=== PATIENT | male | born 1985 | race Hispanic/Latino ===

== ENCOUNTER 2020-03-28 20:55 | Inpatient (IN) | payer OTHER ==
[~2020-03-28] VITALS: Ht 167.6 cm; Wt 79.4 kg
[2020-03-28] MEDS ORDERED: ONDANSETRON HCL INJ 2MG/ML 2ML 2 MG/ML VIAL IV STA (22:32)
[2020-03-28] MEDS ORDERED: SODIUM CHLORIDE 0.9% 1000ML 1,000 ML IV ONE ×2 (22:45)
[2020-03-28 22:56] LABS: BASOPHILS % 0.1 % (0.0-1.0); HEMATOCRIT 49.7 % (38.2-49.6); HEMOGLOBIN 17.3 g/dL (14.0-18.0); MEAN CORPUSCULAR HEMOGLOBIN 27.5 pg (28-32); MEAN CORPUSCULAR HGB CONC 34.8 g/dL (31-35); MEAN CORPUSCULAR VOLUME 79.1 fL (81-99); MONOCYTES # (AUTO) 2.7 (0.2-0.8); MONOCYTES % 9.3 % (4.4-11.3); NEUTROPHILS % 82.7 % (38.7-80.0); PLATELET COUNT 288 x10e3/uL (140-360); RED BLOOD COUNT 6.28 x10e6/uL (4.3-5.7); RED CELL DISTRIBUTION WIDTH 12.2 % (11.7-14.4)
[2020-03-28 23:08] LABS: MAGNESIUM 2.5 MG/DL (1.3-2.1)
[2020-03-28 23:10] LABS: ALBUMIN 6.4 g/dL (3.5-5.0); ALBUMIN/GLOBULIN RATIO 1.4 (0.8-2.0); ANION GAP 30.2 mmol/L (8-16); CALCIUM 12.3 mg/dL (8.4-10.2); CREATININE, SERUM 4.95 mg/dL (0.72-1.25); POTASSIUM 4.2 mmol/L (3.5-5.1)
[2020-03-28 23:17] LABS: CREATINE KINASE MB 7.5 ng/mL (0-5.0)
[2020-03-29] VITALS (9 sets, daily range): BP systolic 117–128; BP diastolic 58–86
[2020-03-29 00:13] LABS: CLARITY,URINE CLOUDY (CLEAR); COLOR,URINE AMBER (YELLOW); KETONES,URINE NEGATIVE (NEGATIVE); LEUKOCYTE ESTERASE ,URINE NEGATIVE (NEGATIVE); NITRITE,URINE NEGATIVE (NEGATIVE); PROTEIN,URINE DIPSTICK 2+ (NEGATIVE)
[2020-03-29 00:14] LABS: AMPHETAMINES SCREEN,URINE NEGATIVE (NEGATIVE); BENZODIAZEPINES SCREEN,URINE NEGATIVE (NEGATIVE); BILIRUBIN,URINE SMALL (NEGATIVE); PHENCYCLIDINE SCREEN,URINE NEGATIVE (NEGATIVE)
[2020-03-29 00:15] LABS: BACTERIA,URINE MANY /HPF; EPITHELIAL CELLS,URINE MANY /LPF
--- NOTE | 2020-03-29 00:36 | Emergency Department Note ---
History of Present Illnes History of Present Illness Chief Complaint: General Medicine Complaints History of Present Illness This is a 35 year old male PRESENTS TO ED WITH CRAMPS TO BLE, ABDOMEN AND NAUSEA; PT REPORTS WORKED OUTSIDE "ALL DAY AND THEN I HAD ABOUT 3 BEERS. STATES HE DID NOT REALLY DRINK MUCH WATER . Historian: Patient Arrival Mode: Car Onset (how long ago): hour(s) (3) Location: LEGS LOWER ABD Quality: CRAMPING Radiation: Reports non-radiation Severity: severe Onset quality: gradual Duration (how long): hour(s) (3) Timing of current episode: constant Progression: worsening Chronicity: new Context: Reports other (WORKED OUTSIDE IN HEAT ALL DAY); Denies recent illness, Denies recent surgery Relieving factors: none Exacerbating factors: none Associated symptoms: Reports denies other symptoms Past Medical/Family History Physician Review I have reviewed the patient's past medical and family history. Any updates have been documented here. Past Medical History Recent Fever: No Clinical Suspicion of Infectio: No New/Unexplained Change in Ment: No Past Medical History: None Past Surgical History: None Social History Smoking Cessation: Never Smoker Alcohol Use: Social Any Illegal Drug Use: No Review of Systems Review of Systems Constitutional: Reports no symptoms EENTM: Reports no symptoms Cardiovascular: Reports no symptoms Respiratory: Reports no symptoms Gastrointestinal: Reports as per HPI Genitourinary: Reports no symptoms Musculoskeletal: Reports as per HPI Integumentary: Reports no symptoms Neurological: Reports no symptoms Psychological: Reports no symptoms Endocrine: Reports no symptoms Hematological/Lymphatic: Reports no symptoms Physical Exam Related Data Allergies: Coded Allergies: No Known Allergies (Unverified , 03/28/20) Triage Vital Signs Vital Signs Date Time Temp Pulse Resp B/P (MAP) Pulse Ox O2 Delivery O2 Flow Rate FiO2 03/28/20 21:28 99.6 97 21 133/96 99 Room Air Vital signs reviewed: Yes Physical Exam CONSTITUTIONAL Constitutional: Present well-developed, Present well-nourished, Present distressed (MILD) HENT HENT: Present normocephalic, Present atraumatic, Present oropharynx clear/moist, Present nose normal HENT L/R: Present left ext ear normal, Present right ext ear normal EYES Eyes: Reports PERRL, Reports conjunctivae normal NECK Neck: Present ROM normal PULMONARY Pulmonary: Present effort normal, Present breath sounds normal CARDIOVASCULAR Cardiovascular: Present regular rhythm, Present heart sounds normal, Present capillary refill normal, Present normal rate GASTROINTESTINAL Abdominal: Present soft, Present nontender, Present bowel sounds normal GENITOURINARY Genitourinary: Present exam deferred SKIN Skin: Present warm, Present dry MUSCULOSKELETAL Musculoskeletal: Present ROM normal NEUROLOGICAL Neurological: Present alert, Present oriented x 3, Present no gross motor or sensory deficits PSYCHOLOGICAL Psychological: Present mood/affect normal, Present judgement normal Results Laboratory Result Diagram: 03/28/20222903/28/202229 Laboratory Laboratory Tests Test 03/28/20 23:30 03/28/20 22:35 03/28/20 22:30 Lipase 73 U/L (8-78) Urine Color Yanni (YELLOW) Urine Clarity Cloudy (CLEAR) Urine pH 6 (5 - 7) Urine Specific [place] >=1.030 (1.010-1.025) Urine Protein 2+ (NEGATIVE) Urine Glucose (UA) Negative (NEGATIVE) Urine Ketones Negative (NEGATIVE) Urine Blood Moderate (NEGATIVE) Urine Nitrite Negative (NEGATIVE) Urine Bilirubin Small (NEGATIVE) Urine Urobilinogen 2.0 mg/dL (0.2 - 1) Urine Leukocyte Esterase Negative (NEGATIVE) Urine RBC 11-20 /HPF (0-5) Urine WBC 11-20 /HPF (0-5) Urine Epithelial Cells Many /LPF (NONE) Urine Bacteria Many /HPF (NONE) Urine Opiates Screen Negative (NEGATIVE) Urine Methadone Screen Negative (NEGATIVE) Urine Barbiturates Screen Negative (NEGATIVE) Urine Phencyclidine Screen Negative (NEGATIVE) Urine Amphetamines Screen Negative (NEGATIVE) Urine Methamphetamines Screen Negative (NEGATIVE) Urine Benzodiazepines Screen Negative (NEGATIVE) Urine Cocaine Screen Negative (NEGATIVE) Urine Cannabinoids Screen Negative (NEGATIVE) White Blood Count 29.02 x10e3/uL (4.8-10.8) Red Blood Count 6.28 x10e6/uL (4.3-5.7) Hemoglobin 17.3 g/dL (14.0-18.0) Hematocrit 49.7 % (38.2-49.6) Mean Corpuscular Volume 79.1 fL (81-99) Mean Corpuscular Hemoglobin 27.5 pg (28-32) Mean Corpuscular Hemoglobin Concent 34.8 g/dL (31-35) Red Cell Distribution Width 12.2 % (11.7-14.4) Platelet Count 288 x10e3/uL (140-360) Neutrophils (%) (Auto) 82.7 % (38.7-80.0) Lymphocytes (%) (Auto) 7.0 % (18.0-39.1) Monocytes (%) (Auto) 9.3 % (4.4-11.3) Eosinophils (%) (Auto) 0.0 % (0.0-6.0) Basophils (%) (Auto) 0.1 % (0.0-1.0) Neutrophils # (Auto) 24.0 (2.1-6.9) Lymphocytes # (Auto) 2.0 (1.0-3.2) Monocytes # (Auto) 2.7 (0.2-0.8) Eosinophils # (Auto) 0.0 (0.0-0.4) Basophils # (Auto) 0.0 (0.0-0.1) Absolute Immature Granulocyte (auto 0.26 x10e3/uL (0-0.1) Sodium Level 137 mmol/L (136-145) Potassium Level 4.2 mmol/L (3.5-5.1) Chloride Level 90 mmol/L (98-107) Carbon Dioxide Level 21 mmol/L (22-29) Anion Gap 30.2 mmol/L (8-16) Blood Urea Nitrogen 27 mg/dL (7-26) Creatinine 4.95 mg/dL (0.72-1.25) Estimat Glomerular Filtration Rate 14 ML/MIN (60-) BUN/Creatinine Ratio 5 (6-25) Glucose Level 112 mg/dL (74-118) Calcium Level 12.3 mg/dL (8.4-10.2) Magnesium Level 2.5 MG/DL (1.3-2.1) Total Bilirubin 0.6 mg/dL (0.2-1.2) Aspartate Amino Transf (AST/SGOT) 61 IU/L (5-34) Alanine Aminotransferase (ALT/SGPT) 114 IU/L (0-55) Alkaline Phosphatase 114 IU/L (40-150) Creatine Kinase 1437 IU/L (30-200) Creatine Kinase MB 7.50 ng/mL (0-5.0) Troponin I 0.095 ng/mL (0-0.300) Total Protein 11.1 g/dL (6.5-8.1) Albumin 6.4 g/dL (3.5-5.0) Globulin 4.7 g/dL (2.3-3.5) Albumin/Globulin Ratio 1.4 (0.8-2.0) Ethyl Alcohol Level < 10.0 mg/dL (0.0-10.0) Lab results reviewed: Yes Assessment & Plan Medical Decision Making MDM PT WITH CRAMPING TO LEGS AND LOWER ABD AFTER WORKING OUTSIDE IN HEAT ALL DAY CBC,CMP, CARDIAC ENZYMES, UA ORDERED TO EVAL FOR RHABDOMYOLYSIS, ACUTE RENAL FAILURE, DEHYDRATION, ELECTROLYTE ABNORMALITY 1 LITER NS IV ORDERED PT FOUND TO BE I RHABDO WITH ACUTE RENAL FAILURE, A UTI AND LEUKOCYTOSIS I SPOKE WITH DR [place] ADMIT TO INPATIENT ROCEPHIN 1 GRAM IV ORDERED Assessment & Plan Final Impression: (1) Rhabdomyolysis (2) Acute renal failure (3) UTI (urinary tract infection) (4) Leukocytosis Depart Disposition: ADMITTED Last Vital Signs Date Time Temp Pulse Resp B/P (MAP) Pulse Ox O2 Delivery O2 Flow Rate FiO2 03/28/20 21:28 99.6 97 21 133/96 99 Room Air Medications in the ED Sodium Chloride 1,000 ml @ 999 mls/hr Q1H1M ONCE IV Last administered on 03/28/20at 22:44; Admin Dose 999 MLS/HR; Start 03/28/20 at 22:45; Stop 03/28/20 at 23:45 Ondansetron HCl 4 mg NOW STAT IV Last administered on 03/28/20at 22:44; Admin Dose 4 MG; Start 03/28/20 at 22:32; Stop 03/28/20 at 22:33 Sodium Chloride 1,000 ml @ 999 mls/hr Q1H1M ONCE IV Last administered on 03/28/20at 22:44; Admin Dose 999 MLS/HR; Start 03/28/20 at 22:45; Stop 03/28/20 at 23:45 ZOË GAITAN MD Mar 29, 2020 00:36
--- NOTE | 2020-03-29 00:37 | NUR ---
RECEIVED PATIENT IN ROOM
[2020-03-29] MEDS ORDERED: CEFTRIAXONE SOD 1 GM/NS 50 ML 50 ML IV SCH (00:45)
[2020-03-29] MEDS ORDERED: ONDANSETRON HCL INJ 2MG/ML 2ML 2 MG/ML VIAL IV PRN (00:45)
[2020-03-29] MEDS: SODIUM CHLORIDE 0.9% 1000ML 1,000 ML IV SCH ×5 (01:09→23:07)
--- NOTE | 2020-03-29 03:53 | NUR ---
PT IS TRANSFERRED FROM ER PT IS AOX3 RESPIRATIONS ARE EVEN AND UNLABORED DENIES PAIN.ORIENTED THE PT TO THE ENVIRONMENT .ASSESSMENT DONE CALL LIGHT WITH IN REACH ,CONTINUE TO MONITOR
[2020-03-29 04:19] LABS: EOSINOPHILS % (MANUAL) 2 % (0-7); LYMPHOCYTES % (MANUAL) 7 % (19-48); METAMYELOCYTES % (MANUAL) 1 % (0-0); MONOCYTES % (MANUAL) 10 % (3.4-9.0); MYELOCYTES % (MANUAL) 1 % (0-0); NEUTROPHILS % (MANUAL) 79 % (40-74)
[2020-03-29 04:20] LABS: PLATELET ESTIMATE ADEQUATE; PLATELET MORPHOLOGY COMMENT NORMAL; RBC MORPHOLOGY COMMENT NORMAL
--- NOTE | 2020-03-29 06:26 | NUR ---
PT RESTING ,DENIES PAIN CALL LIGHT WITH IN REACH,CONTINUE TO MONITOR
--- NOTE | 2020-03-29 07:00 | NUR ---
RCD PT AT BED PT IS ALERT AND ORIENTED RESTING ON BED IV PATENT , BED LOW AND LOCKED CALL LIGHT IN REACH
--- NOTE | 2020-03-29 07:07 | NUR ---
BEDSIDE REPORT GIVEN TO THE ONCOMING NURSE
[2020-03-29 07:54] LABS: CREATINE KINASE MB 5.3 ng/mL (0-5.0)
[2020-03-29 10:46] LABS: BASOPHILS % 0.4 % (0.0-1.0); EOSINOPHILS # (AUTO) 0.1 (0.0-0.4); EOSINOPHILS % 0.5 % (0.0-6.0); HEMATOCRIT 37.3 % (38.2-49.6); LYMPHOCYTES # (AUTO) 1.5 (1.0-3.2); LYMPHOCYTES % 14.4 % (18.0-39.1); MEAN CORPUSCULAR HEMOGLOBIN 27.5 pg (28-32); MEAN CORPUSCULAR HGB CONC 33.8 g/dL (31-35); MEAN CORPUSCULAR VOLUME 81.4 fL (81-99); MONOCYTES # (AUTO) 1.3 (0.2-0.8); MONOCYTES % 12.4 % (4.4-11.3); NEUTROPHILS # (AUTO) 7.7 (2.1-6.9); PLATELET COUNT 165 x10e3/uL (140-360); RED BLOOD COUNT 4.58 x10e6/uL (4.3-5.7); RED CELL DISTRIBUTION WIDTH 12.4 % (11.7-14.4)
[2020-03-29 10:56] LABS: HEMOGLOBIN 12.6 g/dL (14.0-18.0)
[2020-03-29 11:01] LABS: CALCIUM 8.9 mg/dL (8.4-10.2); CREATININE, SERUM 1.45 mg/dL (0.72-1.25)
--- NOTE | 2020-03-29 18:40 | NUR ---
PT RESTING ON BED BED SIDE REPORT GIVEN TO ONCOMING NURSE
--- NOTE | 2020-03-29 20:12 | NUR ---
RECEIVED PT SITTING THE SIDE OF THE BED AOX3 .DENIES PAIN BLOOD DRAWN FOR [facility] .CALL LIGHT WITH IN REACH .CONTINUE TO MONITOR
[2020-03-29] MEDS ORDERED: ACETAMINOPHEN 325 MG TAB PO PRN (20:30)
--- NOTE | 2020-03-29 23:30 | History and Physical ---
PRIMARY CARE DOCTOR: Dr. Cuello. CHIEF COMPLAINT: Leg cramps. HISTORY OF PRESENT ILLNESS: This is a 35-year-old healthy, who has been working outdoor in the hot whether, presented with nausea, bilateral lower extremities cramps and abdominal cramps. Denies chest pain or shortness of breath. No fever or chills. No cough. In the emergency room, the patient felt better after 1 L of fluid. The patient only urinated twice this morning. PAST MEDICAL AND SURGICAL HISTORY: None. MEDICATIONS: None. ALLERGIES: NONE. SOCIAL HISTORY: Does not smoke. Occasional alcohol. FAMILY HISTORY: Positive for diabetes. REVIEW OF SYSTEMS: A 10-point review of system obtained and nothing else is significant other than what is stated in HPI. PHYSICAL EXAMINATION: VITAL SIGNS: Temperature 97.9, pulse 68, respiratory rate 18, and blood pressure 128/76. GENERAL: No acute distress. SKIN: No rash. HEENT: Anicteric. Oropharynx is clear. LUNGS: Clear. HEART: Regular rate and rhythm. Normal S1 and S2. GI: Abdomen is soft and nondistended. NEUROLOGIC: Alert and oriented x3. Cranial nerves 2 through 12 grossly intact. PSYCHIATRIC: No hallucination. MUSCULOSKELETAL: Painless range of motion. LABORATORY DATA: Laboratory ervin, initial creatinine was 4.95, now is down to 1.45, however, CPK is still going up, it is 2173. Initial white count was 29, now is down to 10. Initial hemoglobin was 17, now is down to 12. Initial platelet count was 288, now is 165. ASSESSMENT AND PLAN: 1. Severe dehydration with acute kidney injury and rhabdomyolysis. I will continue IV fluid, likely his creatinine is coming down already. However, his CPK is still going up. Therefore, we will wait till tomorrow before I discharge him. 2. Gastrointestinal and deep venous thrombosis prophylaxis, not indicated. MD TRISTON Sandy/DEB /[id number] cc: [facility]
[2020-03-30] VITALS: BP 125/80
[2020-03-30] MEDS: SODIUM CHLORIDE 0.9% 1000ML 1,000 ML IV SCH ×2 (03:32→10:12)
[2020-03-30 04:00] VITALS: BP 108/73
[2020-03-30 05:35] LABS: BASOPHILS % 0.5 % (0.0-1.0); EOSINOPHILS # (AUTO) 0.1 (0.0-0.4); HEMATOCRIT 35.4 % (38.2-49.6); HEMOGLOBIN 11.6 g/dL (14.0-18.0); LYMPHOCYTES # (AUTO) 1.7 (1.0-3.2); LYMPHOCYTES % 28.6 % (18.0-39.1); MEAN CORPUSCULAR HEMOGLOBIN 27.5 pg (28-32); MEAN CORPUSCULAR HGB CONC 32.8 g/dL (31-35); MEAN CORPUSCULAR VOLUME 83.9 fL (81-99); MONOCYTES # (AUTO) 0.6 (0.2-0.8); MONOCYTES % 9.8 % (4.4-11.3); NEUTROPHILS # (AUTO) 3.6 (2.1-6.9); NEUTROPHILS % 58.9 % (38.7-80.0); PLATELET COUNT 139 x10e3/uL (140-360); RED BLOOD COUNT 4.22 x10e6/uL (4.3-5.7); RED CELL DISTRIBUTION WIDTH 12.4 % (11.7-14.4)
[2020-03-30 06:00] LABS: ALANINE AMINOTRANSFERASE 60 IU/L (0-55); ALBUMIN 3.5 g/dL (3.5-5.0); ALBUMIN/GLOBULIN RATIO 1.3 (0.8-2.0); ALKALINE PHOSPHATASE 64 IU/L (40-150); ANION GAP 9.3 mmol/L (8-16); BLOOD UREA NITROGEN 16 mg/dL (7-26); BUN/CREATININE RATIO 18 (6-25); CALCIUM 8.6 mg/dL (8.4-10.2); CARBON DIOXIDE 22 mmol/L (22-29); CHLORIDE 109 mmol/L (98-107); CREATININE, SERUM 0.88 mg/dL (0.72-1.25); EST GLOMERULAR FILTRATION RATE > 60 ML/MIN (60-); GLUCOSE 100 mg/dL (74-118); POTASSIUM 4.3 mmol/L (3.5-5.1); SODIUM 136 mmol/L (136-145)
[2020-03-30 06:46] LABS: MAGNESIUM 1.9 MG/DL (1.3-2.1)
--- NOTE | 2020-03-30 07:21 | NUR ---
BEDSIDE REPORT GIVEN TO THE ONCOMING NURSE
--- NOTE | 2020-03-30 07:21 | NUR ---
BEDSIDE SHIFT REPORT RECEIVED FROM THE COREMAKER BENCH RN. EDUCATED PT ABOUT FALL PRECAUTIONS. PT VERBALIZED UNDERSTANDING. BED IS LOW AND LOCKED. SIDE RAILS X2. CALL LIGHT WITH IN EASY REACH. ALL SAFETY MEASURES IN PLACE. PT DENIES NEEDS AT THIS TIME.
[2020-03-30 08:00] VITALS: BP 115/71
[2020-03-30 08:33] VITALS: BP 115/71
--- NOTE | 2020-03-30 11:33 | NUR ---
PT DISCHARGED HOME SAFELY WITH FAMILY MEMBER. LAC AND RAC 18 G IV'S REMOVED. TIP INTACT. DRESSING APPLIED. NO RX PER DR. CARSON. DISCHARGE INSTRUCTIONS GIVEN AND PATIENT VERBALIZED UNDERSTANDING. PT ESCORTED TO THE PRIVATE AUTO AT THE FRONT ENTRANCE. PT DENIED FURTHER NEEDS.
--- NOTE | 2020-03-30 22:50 | Discharge Summary ---
PRIMARY CARE DOCTOR: Dr. Cuello. FINAL DIAGNOSIS: Severe dehydration with acute kidney injury and rhabdomyolysis. SECONDARY DIAGNOSIS: None. CONSULTANTS: None. PROCEDURES/STUDIES PERFORMED: None. HISTORY: Per [facility] and [facility]. HOSPITAL COURSE: The patient was aggressively hydrated. His creatinine normalized and his CPK started coming down as well. CONDITION ON DISCHARGE: Improved. DISCHARGE MEDICATIONS: Please see medication reconciliation form. Of note, I have updated his primary care doctor about this hospitalization. MD TRISTON Sandy/DEB /[id number] cc: [facility]
--- NOTE | 2020-03-31 08:49 | NUR ---
COVID-19 came back positive after the patient was discharged. I called the patient and informed him and asked him to self quarantine for 10 days per CDC guideline.
== END 2020-03-30 11:33 | disposition home or self-care (01) | DRG 683 ==
LOC: ER 21:12 → ERHOLD 03-29 01:14 → MED/SURG2 03-29 02:57
PROVIDERS: ADMIT Internal Medicine; ATTEND Internal Medicine
DX: N17.9 Acute kidney failure, unspecified (principal); M62.82 Rhabdomyolysis; E86.0 Dehydration; Z11.59 Encounter for screening for other viral diseases
CPT/HCPCS: 36415; 80048; 80053; 80307; 80320; 81001; 82550; 82553; 83690; 83735; 84484; 85025; 99284; J0696; J2405; J7030; U0002